=== PATIENT | female | born 1945 | race Caucasian/White ===

== ENCOUNTER 2017-10-06 08:58 | Day surgery (SDC) | payer MEDICARE ==
[2017-10-02 11:09] VITALS: BMI 38.4
[~2017-10-06 08:58] MED LIST: LACTATED RINGERS 1,000 ML IV SCH; LIDOCAINE 1% 20 ML VIAL (10MG/ML) FOR IV START INTRADERMA PRN
[2017-10-06 09:47] VITALS: RESP 16; TEMP 97.2
[2017-10-06 09:50] LABS: Glucose,Whole Blood 121 mg/dL (75-99)
[2017-10-06] MEDS ORDERED: LIDOCAINE 1% INJ 10MG/ML (20 ML MDV) ONE (10:03)
[2017-10-06] MEDS ORDERED: PROPOFOL 10 MG/ML 20 ML VIAL IV ONE (10:03)
--- NOTE | 2017-10-06 10:26 | P.PCN ---
Date of Procedure: 10/06/17 Procedure(s) Performed: Procedure: Colonoscopy. Preoperative diagnosis: Screening for neoplasia, patient has history of polyps. Postoperative diagnosis: Diverticulosis with no evidence of acute diverticulitis , strictures, polyps or cancer. Preparation: HalfLytely prep. Sedation: Was provided by anesthesia. Brief clinical history: The patient is 71-year-old female who is scheduled for this evaluation for screening for neoplasia because of history of polyps. Her prior exam was around 5 years ago. At this time, she has no abdominal complaints, bleeding or anemia. Procedure: With the patient on her left lateral decubitus position and after informed consent and adequate sedation, the perianal area was inspected and it did not show any fissures or fistulas. There were no masses felt on digital rectal examination. The Olympus CFQ 160L do colonoscope was then inserted in the rectum in the usual fashion and advanced to the cecum. There was few diverticular orifices noted in the sigmoid and few on the right side with no evidence of acute diverticulitis or strictures. The mucosa appeared healthy. No polyps or tumors were seen. I retroflexed the endoscope in the rectum before the endoscope was withdrawn. The patient tolerated the procedure well. Plan: The patient was reassured. Discussed dietary measures. Sh will follow- up with you as planned and I recommended repeat exam in 5 years.
[2017-10-06 10:36] LABS: Glucose,Whole Blood 126 mg/dL (75-99)
[2017-10-06 10:50] VITALS: BP 146/67; PULSE 71
== END 2017-10-06 11:01 | disposition home or self-care (01) ==
LOC: ORWHC2ENDO 08:58
DX: Z12.11 Encounter for screening for malignant neoplasm of colon (principal); K57.30 Diverticulosis of large intestine without perforation or abscess without bleeding; Z86.010 Personal history of colon polyps; E11.9 Type 2 diabetes mellitus without complications; I10 Essential (primary) hypertension; Z86.718 Personal history of other venous thrombosis and embolism; Z79.4 Long term (current) use of insulin; Z79.899 Other long term (current) drug therapy; Z88.7 Allergy status to serum and vaccine; Z87.891 Personal history of nicotine dependence
CPT/HCPCS: J2001; J2704; G0105

== ENCOUNTER → 2018-09-17 | Outpatient (CLI) | payer MEDICARE ==
[~2018-09-17] MED LIST changes: +DOBUTamine DRIP for NUC MED 500 MG in DEXTROSE/WATER 1 250ML.BAG IV ONE; -LACTATED RINGERS 1,000 ML IV SCH; -LIDOCAINE 1% 20 ML VIAL (10MG/ML) FOR IV START INTRADERMA PRN
--- NOTE | 2018-09-17 12:23 | ECHOS ---
STRESS ECHOCARDIOGRAM DOBUTAMINE ECHO REPORT DATE OF SERVICE: 09/17/2018 INDICATIONS: Short of breath, diabetes. MEDICATIONS: BASELINE HEART RATE: 81 BASELINE BLOOD PRESSURE: 190/54 MAXIMUM HEART RATE: 129 MAXIMUM BLOOD PRESSURE: 216/56 85% MPHR: 126 100% MPHR: 148 METS: MAXIMUM STAGE REACHED: TOTAL EXERCISE TIME: CLINICAL INFORMATION: Baseline EKG revealed normal sinus rhythm without significant ST-T changes. The patient was hypertensive to begin with at 190/54. With dobutamine administration as per protocol, EKG did not reveal any new ST-segment changes. Rare PVCs were noted. At peak exercise, she had more frequent PVCs. At about 8 minutes into dobutamine administration, she had ST-segment depression in inferolateral leads with isolated PVCs, but did not have any angina. By EKG criteria, this is a positive dobutamine stress test. However, patient does have hypertension and these changes could be related to hypertension as well. Maximal heart rate achieved was about 129 beats per minute which is more than 85% of predicted maximal. Baseline echo images revealed normal wall motion wall thickening of all segments. With the dobutamine administration as per protocol, there was progressive increase in contractility suggesting that there is no evidence of any stress-induced ischemia. FINAL IMPRESSION: 1. By EKG criteria this is an abnormal dobutamine stress test with ST-segment depression but this could be related to underlying hypertension as well. There were also PVCs noted. 2. Normal dobutamine stress echocardiogram without any evidence to suggest ischemia with the dobutamine stress. MMODL / IJN: [id number] /
== END | disposition home or self-care (01) ==
LOC: RADNMMAIN 08:52
PROVIDERS: ATTEND Family Medicine
DX: R94.39 Abnormal result of other cardiovascular function study (principal); E11.9 Type 2 diabetes mellitus without complications
CPT/HCPCS: 93351; J1250

== ENCOUNTER → 2022-03-08 | Outpatient (CLI) | payer MEDICARE ==
[2022-03-08 18:41] LABS: ALT 31 U/L (8-44); AST 26 U/L (13-35); Chol/HDL Ratio 3.04 Ratio; LDL Cholesterol,Calculated 57.5 mg/dL (0.0-131.0)
== END | disposition home or self-care (01) ==
LOC: LABWHC1 10:29
PROVIDERS: ATTEND Internal Medicine Interventional Cardiology
DX: E78.00 Pure hypercholesterolemia, unspecified (principal)
CPT/HCPCS: 36415; 80061; 84450; 84460

== ENCOUNTER 2024-08-12 06:49 | Day surgery (SDC) | payer MEDICARE ==
[2024-08-11 09:26] VITALS: BMI 25.2
[2024-08-12] MEDS: IV FLUID CONTINUATION 1,000 ML IV ONE (07:04)
[2024-08-12 07:08] VITALS: RESP 16; TEMP 97
[2024-08-12] MEDS ORDERED: LIDOCAINE 1% (10MG/ML) FOR IV START INTRADERMA PRN (07:12)
[2024-08-12] MEDS ORDERED: LACTATED RINGERS 1,000 ML IV SCH (07:12)
[2024-08-12 07:23] LABS: Glucose,Whole Blood 80 mg/dL (70-110)
[2024-08-12] MEDS ORDERED: PROPOFOL 10 MG/ML 20 ML VIAL IV ONE (07:30)
--- NOTE | 2024-08-12 07:41 | P.GSHP ---
History of Present Illness H&P Date: 08/12/24 CHIEF COMPLAINT: Colon screen HISTORY OF PRESENT ILLNESS: The patient is a 78-year-old female who presents for colon screen. Lower endoscopy was offered for further evaluation and management. PAST MEDICAL HISTORY: Please see list. PAST SURGICAL HISTORY: Please see list. MEDICATIONS: Please see list. ALLERGIES: Please see list. SOCIAL HISTORY: No illicit drug use FAMILY HISTORY: No reports of Crohn disease or ulcerative colitis. REVIEW OF ORGAN SYSTEMS: CONSTITUTIONAL: No reports of fevers or chills. PHYSICAL EXAM: VITAL SIGNS: Stable GENERAL: Well-developed pleasant in no acute distress. HEENT: No scleral icterus. Extraocular movements grossly intact. Moist buccal mucosa. NECK: Supple without lymphadenopathy. CHEST: Unlabored respirations. Equal bilateral excursions. CARDIOVASCULAR: Regular rate and rhythm. Distal 2+ pulses. ABDOMEN: Soft, nontender, nondistended. MUSCULOSKELETAL: No clubbing, cyanosis, or edema. ASSESSMENT: 1. Colon screen. PLAN: 1. Recommend proceeding with a lower endoscopy Past Medical History Past Medical History: Diabetes Mellitus, Deep Vein Thrombosis (DVT), Hypertension Additional Past Medical History / Comment(s): hx of colon polyp,dvt years ago,anemia History of Any Multi-Drug Resistant Organisms: None Reported Past Surgical History: Hysterectomy, Joint Replacement, Orthopedic Surgery Additional Past Surgical History / Comment(s): rt hip replacement, lucas carpal tunnel x2 ea side, shoulder sx Past Anesthesia/Blood Transfusion Reactions: No Reported Reaction Additional Past Anesthesia/Blood Transfusion Reaction / Comment(s): no hx blood transfusion Smoking Status: Former smoker - Past Family History Mother Family Medical History: Cancer Additional Family Medical History / Comment(s): lung Son(s) Family Medical History: Deep Vein Thrombosis (DVT) Medications and Allergies Home Medications Medication Instructions Recorded Confirmed Type Cholecalciferol (Vitamin D3) 50 mcg PO DAILY 10/02/17 08/12/24 History [Vitamin D3] amLODIPine [Norvasc] 5 mg PO QAM 10/02/17 08/12/24 History lisinopriL [Zestril] 20 mg PO QAM 10/02/17 08/12/24 History Ascorbic Acid [Vitamin C] 500 mg PO DAILY 08/11/24 08/12/24 History Aspirin 81 mg PO DAILY 08/11/24 08/12/24 History Dapagliflozin Propanediol [Farxiga] 10 mg PO QAM 08/11/24 08/12/24 History Famotidine [Pepcid] 20 mg PO QAM 08/11/24 08/12/24 History Ferrous Sulfate [Iron] 28 mg PO DAILY 08/11/24 08/12/24 History Finerenone [Kerendia] 10 mg PO QAM 08/11/24 08/12/24 History Lovastatin [Mevacor] 10 mg PO HS 08/11/24 08/12/24 History Montelukast Sodium 10 mg PO QAM 08/11/24 08/12/24 History Tirzepatide [Mounjaro] 5 mg SQ MO 08/11/24 08/12/24 History Allergies Allergy/AdvReac Type Severity Reaction Status Date / Time Tetanus Vaccines and Toxoid Allergy Swelling Verified 08/12/24 07:13 Surgical - Exam Vital Signs Temp Pulse Resp BP Pulse Ox 97 F L 93 16 164/73 96 08/12/24 07:03 08/12/24 07:03 08/12/24 07:03 08/12/24 07:03 08/12/24 07:03
[2024-08-12 08:12] VITALS: BP 152/73; PULSE 73
--- NOTE | 2024-08-12 08:24 | P.OP ---
Date of Procedure: 08/12/24 Description of Procedure: PREOPERATIVE DIAGNOSIS: Family history of colon cancer Personal history of colon polyps Colonoscopy screening. POSTOPERATIVE DIAGNOSIS: Colonoscopy screening. Diverticulosis, scattered. OPERATION: Colonoscopy to the cecum, ileocecal valve and appendiceal orifice. SURGEON: Chetna Reyez MD. ANESTHESIA: MAC. INDICATIONS: The patient is a 78-year-old female who presents for colonoscopy screening. Last colonoscopy 5 years ago. Benefits and risks were described and informed consent was obtained. DESCRIPTION OF PROCEDURE: The patient had undergone GoLytely prep. The patient had been brought into the operating room and laid in the left lateral decubitus position. After adequate intravenous sedation, the rectum was examined with 2% lidocaine jelly. No external hemorrhoids were encountered. The rectal tone was within normal limits. No lesions were palpated in the rectal vault. An Olympus colonoscope was advanced until the cecum, ileocecal valve and appendiceal orifice were clearly viewed. The prep was good. Scattered diverticulosis was encountered. No colonic polyps were found. No evidence of focal colitis was found. Retroflexion of the scope demonstrated grade 2 internal hemorrhoids without active bleeding or inflammation. The colon was desufflated. The patient had tolerated the procedure well. Withdrawal time was over 6 minutes. FINDINGS: Aronchick preparation quality scale 2 (1-5) Internal hemorrhoids, grade 2 External prolapsed hemorrhoids, grade 2 No arteriovenous malformations. No adenomatous polyps. No focal colitis. RECOMMENDATIONS: Lower endoscopy in 2029 due to high risk personal and family history Plan - Discharge Summary Discharge Rx Participant: No New Discharge Prescriptions: Continue amLODIPine [Norvasc] 5 mg PO QAM lisinopriL [Zestril] 20 mg PO QAM Cholecalciferol (Vitamin D3) [Vitamin D3] 50 mcg PO DAILY Ascorbic Acid [Vitamin C] 500 mg PO DAILY Tirzepatide [Mounjaro] 5 mg SQ MO Dapagliflozin Propanediol [Farxiga] 10 mg PO QAM Montelukast Sodium 10 mg PO QAM Finerenone [Kerendia] 10 mg PO QAM Ferrous Sulfate [Iron] 28 mg PO DAILY Aspirin 81 mg PO DAILY Famotidine [Pepcid] 20 mg PO QAM Lovastatin [Mevacor] 10 mg PO HS Discharge Medication List Cholecalciferol (Vitamin D3) [Vitamin D3] 50 mcg PO DAILY 10/02/17 [History] amLODIPine [Norvasc] 5 mg PO QAM 10/02/17 [History] lisinopriL [Zestril] 20 mg PO QAM 10/02/17 [History] Ascorbic Acid [Vitamin C] 500 mg PO DAILY 08/11/24 [History] Aspirin 81 mg PO DAILY 08/11/24 [History] Dapagliflozin Propanediol [Farxiga] 10 mg PO QAM 08/11/24 [History] Famotidine [Pepcid] 20 mg PO QAM 08/11/24 [History] Ferrous Sulfate [Iron] 28 mg PO DAILY 08/11/24 [History] Finerenone [Kerendia] 10 mg PO QAM 08/11/24 [History] Lovastatin [Mevacor] 10 mg PO HS 08/11/24 [History] Montelukast Sodium 10 mg PO QAM 08/11/24 [History] Tirzepatide [Mounjaro] 5 mg SQ MO 08/11/24 [History] Follow up Appointment(s)/Referral(s): Chetna Reyez MD [STAFF PHYSICIAN] - As Needed Patient Instructions/Handouts: Diverticulosis Diet (GEN), Diverticulosis (DC) Activity/Diet/Wound Care/Special Instructions: Repeat colonoscopy 5 years, 2030 Discharge Disposition: HOME SELF-CARE
== END 2024-08-12 08:33 | disposition home or self-care (01) ==
LOC: ORWHC2ENDO 06:49
PROVIDERS: ATTEND Surgery Plastic and Reconstructive Surgery
DX: Z12.11 Encounter for screening for malignant neoplasm of colon (principal); K57.30 Diverticulosis of large intestine without perforation or abscess without bleeding; E11.9 Type 2 diabetes mellitus without complications; I10 Essential (primary) hypertension; Z79.82 Long term (current) use of aspirin; Z79.84 Long term (current) use of oral hypoglycemic drugs; Z79.899 Other long term (current) drug therapy; Z80.0 Family history of malignant neoplasm of digestive organs; Z86.718 Personal history of other venous thrombosis and embolism; Z87.891 Personal history of nicotine dependence; Z88.7 Allergy status to serum and vaccine; Z86.0100 Personal history of colon polyps, unspecified; Z90.710 Acquired absence of both cervix and uterus
CPT/HCPCS: J2704; G0105; 45378